=== PATIENT | female | born 1950 | race Hispanic/Latino ===

== ENCOUNTER → 2018-01-17 | Day surgery (SDC) | payer MEDICARE, OTHER ==
[~2018-01-17] MED LIST: ASPIR 8181 MG PO; BUTORPHANO10 MG/1 ML; DEXAMETHASONE SOD PHOS 10 MG/1 ML VIAL IV ONE; DIVALPROEX SOD500 MG PO; FENTANYL CITRATE/PF 100MCG/2 ML INJ ONE; FLOMAX0.4 MG PO; FLUOXETINE HCL40 MG PO; IOPAMIDOL 200 MG/ML 20 ML VIAL IT ONE; IPRATROPIU0.2 MG/1 M NEB; LEVOTHYROXINE50 MCG PO; LIDOCAINE HCL 1% LOCAL INJ 20 ML VIAL ONE; MAGNESIUM OXID400 MG PO; MEPRON750 MG/5 M PO; MIDAZOLAM HCL 2 MG/2 ML VIAL ONE; MIRTAZAPINE15 MG PO; MIRTAZAPINE30 MG PO; MYCOPHENOLATE500 MG PO; NORCO 10-325 T1 EACH PO; NYSTATIN100000 UNI SS; OS-CAL 500+D T1 EACH PO; PANTOPRAZOLE SO40 MG PO; PHENYLEPHRINE HCL 1% 10 MG/ML VIAL IV ONE; PRAVASTATIN SOD20 MG PO; PRAVASTATIN SOD40 MG PO; PREDNISONE10 MG PO; PROPOFOL IV EMULSION 10 MG/ML 20 ML VIAL IV ONE; SENNOSIDES-DOC1 EACH PO; TACROLIMUS1 MG PO; VALCYTE450 MG PO; VITAMIN D250000 UNIT PO; XANAX1 MG PO
[2018-01-17 08:00] VITALS: BP 113/69
--- OUTSIDE RECORDS SUMMARY | 2018-02-07 07:38 | XMS REPORT | Summary of Care ---
Demographics Address [address] [place] [address] Preferred Language Bengali Marital Status Unknown Episcopalian Affiliation Unknown Race White Ethnic Group Non- Author Author RUI Hook, TAMARA Organization Unknown Address Unknown Phone Unavailable Care Team Providers Care Manager Cable Name Role Phone AMANDA TALBERT M.D. Unavailable Unavailable KELLY BRAR MD Unavailable Unavailable Tamara Reynoso MD Unavailable Unavailable Unavailable Unavailable Functional Status Name Dates Details Functional status health issues are not documented Status: Name Dates Details Cognitive status health issues are not documented Status: Problems Name Dates Details Glenoid fracture of shoulder, left, closed, initial encounter (811.03, S42.142A ) Status: Active Medications Name Dates Details Hydrocodone-Acetaminophen 10-325 MG Oral Tablet TAKE 1 TABLET EVERY 4 TO 6 HOURS NEEDED FOR PAIN. Quantity: 90 AMANDA TALBERT M.D. * Start : 08-Nov-2017 Active TraMADol HCl - 50 MG Oral Tablet TAKE 1 TABLET EVERY 4 TO 6 HOURS NEEDED. * Quantity: 60 Refills: 0 AMANDA TALBERT M.D. * Start : 17-Dec-2017 Active Hydrocodone-Acetaminophen 10-325 MG Oral Tablet TAKE 1 TABLET EVERY 4 TO 6 HOURS NEEDED FOR PAIN. * Quantity: 60 Refills: 0 AMANDA TALBERT M.D. * Start : 17-Dec-2017 Active Acetaminophen-Codeine #3 300-30 MG Oral Tablet TAKE 1 TABLET EVERY 4 TO 6 HOURS NEEDED FOR PAIN. * Quantity: 90 Refills: 0 AMANDA TABLERT M.D. * Start : 02-Jan-2018 Active Allergies and Adverse Reactions Name Dates Details Penicillins (Allergy) Status: Active Sulfa Drugs (Allergy) Status: Active No Known Environmental Allergies (Allergy) Status: Active Past Medical History Name Dates Details History of arthritis (V13.4, Z87.39) Status: Resolved History of asthma (V12.69, Z87.09) Status: Resolved History of back pain (V13.59, Z87.39) Status: Resolved History of blood clots (V12.51, Z86.718) Status: Resolved History of cardiac disorder (V12.50, Z86.79) Status: Resolved History of chronic obstructive lung disease (V12.69, Z87.09) Status: Resolved History of depression (V11.8, Z86.59) Status: Resolved History of Gallbladder problem (575.9, K82.9) Status: Resolved History of kidney disease (V13.09, Z87.448) Status: Resolved History of Kidney stones, calcium oxalate (592.0, N20.0) Status: Resolved History of lung disease (V12.60, Z87.09) Status: Resolved History of methicillin resistant Staphylococcus aureus infection (V12.04, Z86.14) Status: Resolved History of myocardial infarction (412, I25.2) Status: Resolved History of osteoporosis (V13.59, Z87.39) Status: Resolved History of pneumonia (V12.61, Z87.01) Status: Resolved History of psychiatric treatment (V15.89, Z92.89) Status: Resolved History of staphylococcal infection (V12.09, Z86.19) Status: Resolved History of thyroid disorder (V12.29, Z86.39) Status: Resolved Procedures Procedure Dates Details History of Hysterectomy Completed History of Appendectomy Completed History of Gallbladder surgery Completed History of Lung transplantation Completed Immunization Name Dates Details Immunizations not documented Family History Name Dates Details Family history of diabetes mellitus (V18.0, Z83.3) Comments: Other Status: Active Family history of Heart trouble (429.9, I51.9) Comments: Other Status: Active Family history of hypertension (V17.49, Z82.49) Comments: Other Status: Active Family history of arthritis (V17.7, Z82.61) Comments: Other Status: Active Family history of malignant neoplasm (V16.9, Z80.9) Comments: Other Status: Active Family history of mental disorder (V17.0, Z81.8) Comments: Other Status: Active Family history of cerebrovascular accident (CVA) (V17.1, Z82.3) Comments: Other Status: Active Social History Name Dates Details Unknown if ever smoked Vital Signs Date Test Result Details No Known Vitals to report Results Date Description Value Details [id number] [U] XRAY SHOULDER MIN 2 VWS LEFT [id number] XR SHOULDER MIN 2 VWS LEFT Images acquired, not reported on this accession number. [id number] NM Stomach emptying [id number] Stomach emptying NM SEE NOTES Comments: EXAM: NM Gastric Emptying ImagingDATE: 12/18/2017 10:40 AM CDTINDICATION: Lung Transplant, evaluate for gastric emptying.COMPARISON: Gastric emptying 07/11/2017.TECHNIQUE:After oral administration of 1.0 mCi of Tc 99m sulfur colloid in solid phasemeal, sequential static images were obtained through approximately 90 minutes.Additional 3 hour delayed static images were also obtained.FINDINGS: Tracer is seen in the stomach with gradual progress to the small bowel duringthe time of the study. The calculated time for emptying half of the contents ofthe stomach is 68 minutes which is within normal limits (normal is less than 90minutes). The percent retention of the meal is 26% and 0% at 1.5 and 3 hours(normal is less than 10% at 4 hours). There is no evidence of esophageal refluxduring the time of the study.IMPRESSION: 1. Normal gastric emptying for solid phase meal. Slight improvement comparedto prior study on 11/2017.2. There is no retention of the meal at 3 hours.--This report was dictated by a Press Operator Heavy Duty/Fellow. I have personallyreviewed the images aswell as the Resident's interpretation and agree with the findings.Read by: Umberto Galeas MD Resident: Umberto GaleasMDDictated Date/time: 12/18/17 16:26Electronically Signed by: Abby Ruiz MD 12/19/1809:48FINAL REPORT [id number] CT Chest wo contrast [id number] SEE NOTES Comments: EXAM: CT CHEST WITHOUT CONTRASTDATE: 01/02/2018 1:21 PM CDTINDICATION: HR Chest CT w/o contrast with Inspiratory and expiratory film-DX:Lung Transplant Status - HR Chest CT w/o contrast with Inspiratory andexpiratory film-DX: Lung Transplant Status.COMPARISON: 09/06/2017TECHNIQUE: Supine volumetric CT acquisition of the chest, without contrast.Subsequently, a prone noncontrast chest CT was obtained with high resolutionprotocol (axial images at 10mm intervals). Coronal and sagittal reformats.IV Contrast: None..DLP: 900 mGy-cmFINDINGS: Lines and Tubes: None.Lower Neck: Heterogenous texture nodule in the right thyroid lobe again seenmeasuring approximately 1.6 cm, unchanged.Heart, Mediastinum and Great Vessels: The heart is normal in size. Nosignificant pericardial effusion is seen. Mild three-vessel coronary arterycalcifications are noted. The ascending aorta measures 3.2 cm above the levelof the main pulmonary trunk which measures 2.8 cm, unchanged. 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 Scattered areas of subsegmental atelectasis are seen in the lingula,right middle lobe, and bilateral lower lobes.No suspicious pulmonary nodules are identified.No evidence of fibrotic changes in the prone images.Few areas of mosaic attenuation seen in the prone expiratory images involvingupper lobes bilaterally that may suggest underlying air entrapment.Pleura: No pleural effusion or pneumothorax.Esophagus and upper abdomen: Low density lesion again seen in the visualizedportion of the spleen currently measuring 1.3 cm in diameter, decreasedcompared to previous study. Changes of cholecystectomy are noted. Diffusereticular density lesion is seen in the visualized portion of the left kidneymeasuring approximately 1.9 cm in diameter that likely represent renal cyst.Bones and Soft Tissues: Cerclage wires affix the anterior lateral 3rd and 4thribs as well as the sternal body, status post lung transplant. No aggressiveosseous lesion is seen. No well-defined fluid collection is identified.Anterior chest wall subcutaneous soft tissue densities suggestive ofpostsurgical changes seen mainly to the left side of the chest.IMPRESSION:1. Postsurgical changes of bilateral orthotopic lung transplant with scatteredsubsegmental atelectasis in both lungs as detailed above. No new or acute lunglesions.2. Some areas of mosaic attenuation seen in the prone expiratory images thatmay represent air entrapment. Correlation with spirometry findings issuggested.3. Postsurgical changes again seen in the anterior chest wall. No well-definedfluid collection identified to suggest an abscess.4. Slight interval decrease in the size of the splenic low density lesionwhich may represent splenic cyst. Exophytic isodense lesion to the renalparenchyma is noted from the left kidney without significant interval changescompared to previous study, measuring approximately 1.9 cm in diameter that mayrepresent complex renal cyst. Correlation with nonemergent renal ultrasound isrecommended.5. Mild coronary calcifications are noted.--Read by: Porfirio Chackoictated Date/time: 01/02/18 15:13Electronically Signed by: Porfirio Chacko MD 01/02/1815:22FINAL REPORT Plan of Care Name Dates Details Planned Observations Planned Goals not documented Planned Encounters Appointment; AMANDA TALBERT M.D. On: 28-Jan-2018 10:00 Appointment; IVON MCGEE P.A. On: 07-Feb-2018 10:00 Instructions Name Dates Details Instructions not documented Encounters Appointment; KIRBY IGLESIAS M.D. Encounter Diagnosis: Problem not documented On: 26-Mar-2017 9:00 Appointment; IVON MCGEE P.A. Encounter Diagnosis: Problem not documented On: 04-Oct-2017 9:30 Appointment; AMANDA TALBERT M.D. Encounter Diagnosis: Problem not documented On: 29-Oct-2017 9:15 Appointment; AMANDA TALBERT M.D. Encounter Diagnosis: Problem not documented On: 05-Nov-2017 9:00 Appointment; AMANDA TALBERT M.D. Encounter Diagnosis: Problem not documented On: 19-Nov-2017 10:15 Appointment; AMANDA TALBERT M.D. Encounter Diagnosis: Problem not documented On: 17-Dec-2017 10:15
--- OUTSIDE RECORDS SUMMARY | 2018-02-07 07:38 | XMS REPORT | Clinical Summary ---
Demographics Address [address] [place] [address] Home Phone Preferred Language Kuwaiti Marital Status Single Caodaism Affiliation Unknown Race White Ethnic Group Non- Author Author [facility] Organization [facility] Address Unknown Phone Unavailable Care Team Providers Care Paving And Surfacing Labourer Name Role Phone Apolinar Leyva MD PCP Allergies Not on File Current Medications Not on file Active Problems Not on file Encounters Date Type Specialty Care Team Description 11/28/2017 Transcribe Physical Therapy Kevin Dowell, Glenoid cavity and neck Orders MD of scapula fracture, left, closed, initial encounter (Primary Dx) 11/27/2017 Telephone Physical Therapy System, Provider Not In, MD after 01/16/2017 Social History Tobacco Use Types Packs/Day Years Used Date Never Assessed Sex Assigned at Date Recorded Not on file Last Filed Vital Signs Not on file Plan of Treatment Health Maintenance Due Date Last Done Comments CERVICAL CANCER SCREENING 1973 BREAST CANCER SCREENING 2002 COLON CANCER SCREENING 2002 SHINGRIX VACCINE (#1) 2002 ZOSTER VACCINE 2012 PNEUMOCOCCAL 2017 POLYSACCHARIDE VACCINE AGE 65 AND OVER PNEUMOCOCCAL-13 2017 INFLUENZA VACCINE 12/05/2017 Results Not on fileafter 01/16/2017 Insurance Payer Benefit Subscriber ID Type Phone Address Plan / Group MEDICARE MEDICARE xxxxxxxxxx Medicare [place], [place] PART A AND B BANKERS LIFE AND CASUALTY BANKERS xxxxxxxxx Commercial LIFE AND CASUALTY Guarantor Name Account Relation to Date of Phone Billing Address Type Patient BRE WADE Personal/F Self 1950 Home: [address] [place] [address] BER WADE Third Self 1950 Home: [address] [place] [address] Liability
== END | disposition home or self-care (01) ==
LOC: OR 05:25
PROVIDERS: ATTEND Physical Medicine & Rehabilitation Pain Medicine
DX: M47.26 Other spondylosis with radiculopathy, lumbar region (principal); M46.1 Sacroiliitis, not elsewhere classified; M47.817 Spondylosis without myelopathy or radiculopathy, lumbosacral region; M06.9 Rheumatoid arthritis, unspecified; M16.12 Unilateral primary osteoarthritis, left hip; M17.12 Unilateral primary osteoarthritis, left knee; J44.9 Chronic obstructive pulmonary disease, unspecified; G47.33 Obstructive sleep apnea (adult) (pediatric); K44.9 Diaphragmatic hernia without obstruction or gangrene; E03.9 Hypothyroidism, unspecified; I12.9 Hypertensive chronic kidney disease with stage 1 through stage 4 chronic kidney disease, or unspecified chronic kidney disease; N18.9 Chronic kidney disease, unspecified; F41.9 Anxiety disorder, unspecified; F31.9 Bipolar disorder, unspecified; Z88.0 Allergy status to penicillin; Z88.2 Allergy status to sulfonamides; Z79.82 Long term (current) use of aspirin; Z68.31 Body mass index [BMI] 31.0-31.9, adult; Z94.2 Lung transplant status; Z92.83 Personal history of failed moderate sedation; Z87.891 Personal history of nicotine dependence
CPT/HCPCS: 64483; 64484 ×2; 77003; J1100; J2001; J2250; J2370; Q9966; Q9967

== ENCOUNTER → 2019-02-17 | Outpatient (CLI) | payer MEDICARE, OTHER ==
[~2019-02-17] MED LIST changes: -DEXAMETHASONE SOD PHOS 10 MG/1 ML VIAL IV ONE; -FENTANYL CITRATE/PF 100MCG/2 ML INJ ONE; -IOPAMIDOL 200 MG/ML 20 ML VIAL IT ONE; -LIDOCAINE HCL 1% LOCAL INJ 20 ML VIAL ONE; -MIDAZOLAM HCL 2 MG/2 ML VIAL ONE; -PHENYLEPHRINE HCL 1% 10 MG/ML VIAL IV ONE; -PROPOFOL IV EMULSION 10 MG/ML 20 ML VIAL IV ONE
--- NOTE | 2019-02-17 13:37 | Diagnostic Imaging Report ---
MRI SPINE LUMBAR WO HISTORY: Low back pain COMPARISON: Report from MRI of the lumbar spine dated 02/16/2014 (images not available) TECHNIQUE: Sagittal T1, sagittal T2, sagittal STIR, axial T2, coronal T2, and axial proton density weighted images of the lumbar spine were obtained without contrast. DISCUSSION: Number of non-rib bearing lumbar vertebral bodies: 5. Alignment: Normal lordosis. No scoliosis. Vertebrae: No fractures, infection or neoplasm. Conus medullaris: Normal, ends at T12-L1. Cauda equina: No masses or arachnoiditis. Posterior paraspinal muscles: Well preserved. No signal abnormalities. Soft tissues: Bilateral round T2 hyperintense renal lesions are likely cysts. Mild multilevel lumbar disc degeneration is present T12-L1: Patent canal and foramina. L1-L2: Patent canal and foramina. L2-L3: Minimal disc bulge without significant canal or foraminal stenosis. L3-L4: Minimal disc bulge without significant canal or foraminal stenosis. L4-L5: Mild to moderate canal stenosis due to disc bulge and ligamentum flavum thickening. Both lateral recesses are slightly effaced. Mild left foraminal stenosis due to disc bulge and facet arthrosis. No significant right foraminal stenosis. L5-S1: Mild bilateral foraminal stenoses due to disc bulge and facet arthrosis. No significant canal stenosis. IMPRESSION: 1. Mild multilevel lumbar disc degeneration. 2. Mild to moderate degenerative canal stenosis at L4-L5. 3. Mild left L4-L5 and bilateral L5-S1 degenerative foraminal stenoses. Signed by: Dr. Paco Perkins M.D. on 02/17/2019 1:34 PM
== END ==
LOC: MRI 11:50
PROVIDERS: ATTEND Physical Medicine & Rehabilitation Pain Medicine
DX: M54.16 Radiculopathy, lumbar region (principal); M54.5 Low back pain
CPT/HCPCS: 72148